=== PATIENT | female | born 1960 | race Caucasian/White ===

== ENCOUNTER 2017-12-30 00:26 | Inpatient (IN) | payer OTHER, MEDICARE ==
[~2017-12-30] VITALS: Ht 162.6 cm; Wt 63.0 kg
[2017-12-30] VITALS (14 sets, daily range): BP systolic 114–146; BP diastolic 66–86
[~2017-12-30 00:26] MED LIST: BACL-1 PO; LIDOCAINE PATCH 5% TD; PREG75CA60 PO
[2017-12-30] MEDS ORDERED: FAMOTIDINE 20 MG TAB PO ONE (08:25)
[2017-12-30] MEDS ORDERED: LIDOCAINE/SOD BICARB 8.4% SYR ID ONE (08:25)
[2017-12-30] MEDS ORDERED: PREGABALIN 150 MG CAPSULE PO ONE (08:25)
[2017-12-30] MEDS ORDERED: NORMOSOL R SOLN(*) 1000 ML BAG 1,000 ML IV PRN (08:25)
[2017-12-30] MEDS ORDERED: ACETAMINOPHEN 500 MG TAB PO ONE (08:25)
[2017-12-30] MEDS ORDERED: CLINDAMYCIN 900 MG/D5W 50 ML 50 ML IVPB ONE (08:25)
[2017-12-30] MEDS ORDERED: MIDAZOLAM 2 MG/2 ML VIAL IVP PRN (08:25)
[2017-12-30] MEDS ORDERED: PROPOFOL(*)1000 MG/100 ML VIAL 100 ML ONE (08:33)
[2017-12-30] MEDS ORDERED: ACETAMINOPHEN(*)1000 MG/100 ML 0 ML IVPB ONE (08:34)
[2017-12-30] MEDS ORDERED: NS(*) 0.9% 250 ML BAG 250 ML ONE ×2 (08:35→22:36)
[2017-12-30] MEDS ORDERED: REMIFENTANIL HCL 1 MG VIAL ONE ×2 (08:35→13:49)
[2017-12-30] MEDS ORDERED: ONDANSETRON 4 MG/2 ML VIAL ONE (09:51)
[2017-12-30] MEDS ORDERED: LIDOCAINE MPF 1% 5 ML VIAL ONE (09:51)
[2017-12-30] MEDS ORDERED: DEXAMETHASONE SOD 4 MG/ML VIAL ONE (09:51)
[2017-12-30] MEDS ORDERED: fentaNYL CITR 100 MCG/2 ML AMP ONE ×2 (09:51→17:47)
[2017-12-30] MEDS ORDERED: PROPOFOL EMUL(*) 10MG/ML 20 ML 20 ML ONE ×2 (09:51→10:34)
[2017-12-30] MEDS ORDERED: METOCLOPRAMIDE 10 MG/2 ML SDV ONE (09:51)
[2017-12-30] MEDS ORDERED: PHENYLEPHRINE 10 MG/1 ML VIAL ONE (09:57)
[2017-12-30] MEDS ORDERED: NS(*) 0.9% 500 ML BAG 500 ML ONE (12:26)
[2017-12-30] MEDS ORDERED: SUCCINYLCHOL CHL 200MG/10ML VL ONE (13:00)
[2017-12-30] MEDS ORDERED: ROCURONIUM BROM 10 MG/ML 5 ML ONE (13:00)
[2017-12-30] MEDS ORDERED: MAGNESIUM HYDROXIDE* 30ML UDCP PO PRN (17:25)
[2017-12-30] MEDS ORDERED: diphenhydrAMINE 25 MG CAP PO PRN (17:25)
[2017-12-30] MEDS ORDERED: LR(*) 1000 ML BAG 1,000 ML IV PRN (17:25)
[2017-12-30] MEDS ORDERED: FLUSH 10 ML SYR IVP PRN (17:25)
[2017-12-30] MEDS ORDERED: HYDROmorphone HCL 2 MG/ML SDV IVP PRN (17:25)
[2017-12-30] MEDS ORDERED: BISACODYL 10 MG SUPP PR PRN (17:25)
[2017-12-30] MEDS ORDERED: ACETAMINOPHEN(*)1000 MG/100 ML 100 ML IVPB PRN (17:25)
[2017-12-30] MEDS ORDERED: ACETAMINOPHEN 500 MG TAB PO PRN (17:25)
[2017-12-30] MEDS ORDERED: BENZOCAINE/MENTHOL 1 EACH LOZG PO PRN (17:25)
[2017-12-30] MEDS ORDERED: oxyCODONE HCL 5 MG CAP PO PRN (17:25)
--- NOTE | 2017-12-30 17:32 | RADIOLOGY IMAGING REPORT ---
FACILITY: [facility] PATIENT NAME: Yolande Lucas : 1960 MR: [id number] V: [id number] EXAM DATE: ORDERING PHYSICIAN: NAGI MACIAS TECHNOLOGIST: [place] [facility] [place]: Yolande Lucas : 1960 Visit/Account:[id number] Date of Sevice: 12/30/2017 Exam type: 2 view cervical spine History: ANTERIOR C4-7 DISCECTOMY AND FUSION Comparison: None. Findings: The initial image demonstrates an operative instrument anterior to the C5-C6 disc space. The subseque nt image demonstrates anterior and interbody fusion of C4-C7. No hardware complication seen. Patient is intubated and there is an NG tube in place. Degenerative changes are noted in the spine. IMPRESSION: 1. Postoperative changes are noted from anterior fusion and discectomy C4-C7. Report Dictated By: Swapnil Barfield MD at 12/30/2017 5:24 PM Report E-Signed By: Swapnil Barfield MD at 12/30/2017 5:26 PM WSN:[id number]
--- NOTE | 2017-12-30 20:46 | Hospitalist Progress Note ---
Subjective Progress Notes Subjective No cp/sob. Right eye has been hurting and feels like something is in it since waking up from surgery. 1400cc of crystalloid, dexamethasone, and phenylephrine given intra-op. Physical Exam Vital Signs Date Time Temp Pulse Resp B/P (MAP) Pulse Ox O2 Delivery O2 Flow Rate FiO2 12/30/17 18:28 97.7 62 12 137/83 (101) 98 Room Air General Appearance: Alert, Awake, No Acute Distress Eyes: Other (Fluoroscein/proparacaine eye drop placed in the Right eye. A horizontal linear line noted below the pupil on the corneal (10mm x 0.5mm). No foreign body seen.) Cardiovascular: Regular Rate and Rhythm Respiratory: Clear to Auscultation Extremities: No Edema Assessment and Plan Problems: (1) Status post cervical spinal fusion Status: Acute Assessment & Plan: She is had a C4-7 anterior diskectomy and fusion. No CV/pulmonary issues. (2) Corneal abrasion Status: Acute Assessment & Plan: She woke up with right eye pain and sensation of something in her eye. Fluorescein testing with the wood's lamp revealed a horizontal abrasion on the cornea below the pupil. No foreign body seen. Will treat with erythromycin eye ointment. (3) Neuropathic pain Status: Chronic Assessment & Plan: Continue Lyrica and Baclofen. (4) GERD (gastroesophageal reflux disease) Status: Chronic Assessment & Plan: Continue Pantoprazole. Problem Qualifiers (1) Corneal abrasion: Laterality: right DELONTE PEDERSEN MD Dec 30, 2017 20:46
[2017-12-30] MEDS: CLINDAMYCIN 900 MG/D5W 50 ML 50 ML IVPB SCH (21:26)
[2017-12-30] MEDS: ERYTHROMYCIN OP OINT 5MG/GM TU OD SCH (21:27)
[2017-12-30] MEDS: DOCUSATE SODIUM 100 MG CAP PO SCH (21:27)
[2017-12-30] MEDS: PREGABALIN 25 MG CAP PO SCH (21:28)
[2017-12-30] MEDS: BACLOFEN 10 MG TAB PO SCH (21:28)
[2017-12-30] MEDS: APAP/HYDROCODONE 325/5 TAB PO PRN (22:29)
[2017-12-30] MEDS ORDERED: ACET500T68 PO (22:54)
[2017-12-31] VITALS (9 sets, daily range): BP systolic 93–121; BP diastolic 56–74; Ht 162.6 cm; Wt 63.0 kg
[2017-12-31] MEDS: DIAZEPAM 5 MG TAB PO PRN ×2 (01:03→20:32)
[2017-12-31] MEDS: APAP/HYDROCODONE 325/5 TAB PO PRN ×3 (03:18→15:09)
[2017-12-31] MEDS: CLINDAMYCIN 900 MG/D5W 50 ML 50 ML IVPB SCH ×2 (05:39→13:11)
[2017-12-31] MEDS: ONDANSETRON 4 MG/2 ML VIAL IVP PRN ×2 (06:31→17:04)
--- NOTE | 2017-12-31 09:06 | Hospitalist Progress Note ---
Subjective Progress Notes Subjective She has complaints of right eye pain, which is unchanged since yesterday. She had no acute events overnight. Patient Complains of: Cardiovascular: No: Chest Pain Respiratory: No: Shortness of Breath Physical Exam Vital Signs Date Time Temp Pulse Resp B/P (MAP) Pulse Ox O2 Delivery O2 Flow Rate FiO2 12/31/17 04:00 97/57 (70) 12/31/17 03:17 98.0 65 14 95 Nasal Cannula 1.0 Intake and Output 12/31/17 01:00 Intake Total 2040 ml Output Total 40 ml Balance 2000 ml Intake Oral 390 ml IV Total 1650 ml Output Drainage Total 40 ml General Appearance: Alert, Awake, No Acute Distress, Afebrile Neuro: No Gross deficits Cardiovascular: Regular Rate and Rhythm Respiratory: No Respiratory Distress, Clear to Auscultation GI: Soft and Non-Tender Psych: Alert & Oriented X3, Appropriate Mood & Affect Assessment and Plan Problems: (1) Status post cervical spinal fusion Status: Acute Assessment & Plan: She is had a C4-7 anterior diskectomy and fusion. No CV/pulmonary issues. (2) Corneal abrasion Status: Acute Assessment & Plan: She woke up with right eye pain and sensation of something in her eye. Fluorescein testing with the wood's lamp revealed a horizontal abrasion on the cornea below the pupil. No foreign body seen. Will treat with erythromycin eye ointment. (3) Neuropathic pain Status: Chronic Assessment & Plan: Continue Lyrica and Baclofen. (4) GERD (gastroesophageal reflux disease) Status: Chronic Assessment & Plan: Continue Pantoprazole. Exam Sepsis Risk: No Definite Risk Problem Qualifiers (1) Corneal abrasion: Laterality: right TOUSSAINTTONYA STRATEGIC SOURCING MANAGER Dec 31, 2017 09:06
--- NOTE | 2017-12-31 09:08 | RADIOLOGY IMAGING REPORT ---
FACILITY: [facility] - [place] PATIENT NAME: Yolande Lucas : 1960 MR: [id number] V: [id number] EXAM DATE: ORDERING PHYSICIAN: NAGI MACIAS TECHNOLOGIST: Location: [facility] - [place] Patient: Yolande Lucas : 1960 Visit/Account:[id number] Date of Sevice: 12/31/2017 CERVICAL SPINE 2 OR 3 VIEW HISTORY: c spine surgery COMPARISON: X-ray examination cervical spine December 30, 2017 FINDINGS: Osseous alignment is anatomic status post anterior fusion C4-C7. Hardware is intact. Surgical drain is noted. Expected soft tissue findings. IMPRESSION: Anatomic alignment status post anterior cervical fusion Report Dictated By: Sanjiv Plummer MD at 12/31/2017 9:02 AM Report E-Signed By: Sanjiv Plummer MD at 12/31/2017 9:05 AM WSN:[id number]
[2017-12-31] MEDS: PANTOPRAZOLE SOD 40 MG TABEC PO SCH (09:50)
[2017-12-31] MEDS: DOCUSATE SODIUM 100 MG CAP PO SCH ×2 (09:50→21:38)
[2017-12-31] MEDS: BACLOFEN 10 MG TAB PO SCH ×3 (09:50→21:38)
[2017-12-31] MEDS: PREGABALIN 25 MG CAP PO SCH ×2 (09:50→21:38)
[2017-12-31] MEDS: ERYTHROMYCIN OP OINT 5MG/GM TU OD SCH ×4 (09:51→21:38)
[2018-01-01 01:49] VITALS: BP 103/59
[2018-01-01 05:10] VITALS: BP 119/69
[2018-01-01] MEDS: DIAZEPAM 5 MG TAB PO PRN (05:11)
[2018-01-01 08:04] VITALS: BP 120/66
[2018-01-01] MEDS: PREGABALIN 25 MG CAP PO SCH (09:42)
[2018-01-01] MEDS: PANTOPRAZOLE SOD 40 MG TABEC PO SCH (09:42)
[2018-01-01] MEDS: ERYTHROMYCIN OP OINT 5MG/GM TU OD SCH ×2 (09:42→13:45)
[2018-01-01] MEDS: DOCUSATE SODIUM 100 MG CAP PO SCH (09:42)
[2018-01-01] MEDS: BACLOFEN 10 MG TAB PO SCH ×2 (09:42→13:44)
--- NOTE | 2018-01-01 10:11 | RADIOLOGY IMAGING REPORT ---
FACILITY: [facility] [place] PATIENT NAME: Yolande Lucas : 1960 MR: [id number] V: [id number] EXAM DATE: ORDERING PHYSICIAN: TONYA TOUSSAINT TECHNOLOGIST: Location: [facility] [place] Patient: Yolande Lucas : 1960 Visit/Account:[id number] Date of Sevice: 01/01/2018 Abdominal series with single view of the chest: 01/01/2018 9:07 AM HISTORY: vomiting, left lower quad pain COMPARISON:none. FINDINGS: Gas within nondistended bowel loops including gas in the rectum. There are a few scattere d small bowel air-fluid levels. Fecal material is present in the colon. No pneumatosis or free air. Right upper quadrant cholecystectomy clips. Previous lower lumbar laminectomy and lumbosacral fusi on. Cardiomediastinal contours are normal. No pulmonary nodule, infiltrate, or consolidation. Pleural sp aces are clear. Bony thorax is intact. Previous lower cervical ACF. IMPRESSION: 1. Nonspecific bowel gas pattern. 2. No acute cardiopulmonary process. Report Dictated By: Cristino Ray MD at 01/01/2018 10:05 AM Report E-Signed By: Cristino Ray MD at 01/01/2018 10:07 AM WSN:[id number]
[2018-01-01] MEDS ORDERED: POLYETHYLENE GLYCOL 17 GM PKT PO ONE (10:25)
[2018-01-01] MEDS ORDERED: DOCU240C84 PO (10:38)
[2018-01-01] MEDS ORDERED: ONDA4TAB97 PO (10:39)
[2018-01-01] MEDS ORDERED: OXYC-865 PO (10:39)
--- NOTE | 2018-01-01 12:32 | Hospitalist Progress Note ---
Subjective Progress Notes Subjective She has complaints of nausea and had vomiting last night. She has some abdominal pain to the left lower quadrant. Patient Complains of: Cardiovascular: No: Chest Pain Respiratory: No: Shortness of Breath Gastrointestinal: Nausea, Vomiting; No Bowel Movement Physical Exam Vital Signs Date Time Temp Pulse Resp B/P (MAP) Pulse Ox O2 Delivery O2 Flow Rate FiO2 01/01/18 10:32 96 Nasal Cannula 1.0 01/01/18 08:04 99.8 76 12 120/66 (84) Intake and Output 01/01/18 01:00 Intake Total 2450 ml Output Total 35 ml Balance 2415 ml Intake Oral 2400 ml IV Total 50 ml Output Drainage Total 35 ml # Voids 5 General Appearance: Alert, Awake, No Acute Distress, Afebrile Neuro: No Gross deficits Cardiovascular: Regular Rate and Rhythm Respiratory: No Respiratory Distress, Clear to Auscultation GI: Soft and Non-Tender Psych: Alert & Oriented X3, Appropriate Mood & Affect Assessment and Plan Problems: (1) Status post cervical spinal fusion Status: Acute Assessment & Plan: She is had a C4-7 anterior diskectomy and fusion. No CV/pulmonary issues. (2) Corneal abrasion Status: Acute Assessment & Plan: She woke up with right eye pain and sensation of something in her eye. Fluorescein testing with the wood's lamp revealed a horizontal abrasion on the cornea below the pupil. No foreign body seen. Will treat with erythromycin eye ointment, she will continue for three days. (3) Neuropathic pain Status: Chronic Assessment & Plan: Continue Lyrica and Baclofen. (4) GERD (gastroesophageal reflux disease) Status: Chronic Assessment & Plan: Continue Pantoprazole. Exam Sepsis Risk: No Definite Risk Problem Qualifiers (1) Corneal abrasion: Laterality: right TONYA TOUSSAINT MORTGAGE PROTECTION SPECIALIST Jan 01, 2018 12:32
--- NOTE | 2018-01-06 11:53 | OPERATIVE REPORT 1 ---
EVENT DATE: December 30, 2017 SURGEON: Clinton Rivas MD ANESTHESIOLOGIST: Cleveland Esquivel MD ANESTHESIA: General. 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 PROCEDURE PERFORMED C4-5, C5-6 and C-7 anterior cervical diskectomy and fusion with anterior cervical plating. IV FLUIDS 1700 cc. ESTIMATED BLOOD LOSS 40 cc. IMPLANTS USED 1. 7 mm, 6-degree lordotic, size small interbody devices from [employer] c3. 2. 55 mm anterior cervical plate from [employer] with eight 14 mm fixation screws also from [employer] SPECIMENS None. DRAINS 10- [place] round Cedric-Fonseca drain through the neck. COMPLICATIONS None. DISPOSITION Post-Anesthesia Care Unit. INDICATIONS FOR SURGERY Ms. Lucas is a 57-year-old female with a long history of neck pain with radiating pain, numbness and tingling down bilateral upper extremities. She had difficulties with fine motor skills in her upper extremities as well as severe burning dysesthesias. Her MRI showed severe degenerative disk disease with cord flattening at C4-5, C5-6 and C6-7. Her physical examination was significant for a positive crossed radial reflex bilaterally and a positive Malave on the right, negative on the left. She had positive Spurling's maneuvers as well and unsteadiness with tandem gait testing. Secondary to ongoing symptoms and the severity of the spinal cord compression, we offered and Ms. Lucas elected to undergo C4 through C7 anterior cervical diskectomy and fusion. Prior to surgery, I explained in detail to the patient the possible risks of surgery. These risks include bleeding, infection, damage to surrounding structures, swallowing difficulties, hoarseness, possible need for tube feeding, damage to the superior or recurrent laryngeal nerve, spinal cord injury, nerve root injury, persistent and/or worsening pain, failure of fixation, need for further surgery, , blindness, sexual dysfunction, autonomic nervous system dysfunction as well as other unforeseen medical and surgical complications. An understanding that in general spinal surgery is more predictive at improving extremity discomfort than axial spine pain was stressed. Additional discussion regarding this type of surgery being directed at preventing the progression of myelopathic symptoms rather than reversing them was also stressed. DESCRIPTION OF PROCEDURE On the day of surgery, the patient was met in the preoperative hold area and all questions were answered. The operative site was identified and marked by myself. The patient was brought in good condition to the operating room and after succumbing to anesthesia was positioned in the supine position on a standard OR bed. Care was taken to maintain appropriate perfusion pressures during anesthesia. All bony protuberances and soft tissues were well padded in the standard fashion. Preoperative antibiotics were administered according to the appropriate timing schedule. At the conclusion of the procedure, the sponge and needle counts were correct x2. A final time-out was undertaken to confirm correct patient, correct levels and correct surgery. The patient was then prepped and draped in the standard sterile orthopedic fashion. An oblique incision was along the medial border of the sternocleidomastoid muscle and sharp dissection was carried out to the platysma, which was divided. Blunt finger dissection was carried out medial to the carotid sheath and the sternocleidomastoid. Soft tissues were elevated off the anterior cervical spine including the longus colli muscles and a lateral radiograph was obtained to confirm correct levels. A self-retaining retractor was then placed and we began our diskectomies at the C4-C5 level. The anterior annulus of C4-C5 was incised along the end plates and laterally with #15 blade. A combination of progressively smaller curettes and rongeurs was then used to perform a complete diskectomy from ventral to dorsal. Once we got about two-thirds of the way through the disk space, a [place]ard game preserve manager was placed and distracted. There was no change in neurophysiologic monitoring. A significant amount of loose herniated disk was found in the interval between the posterior annulus and the posterior longitudinal ligament. Care was taken to avoid putting any undue pressure on the spinal cord as we removed these disk fragments and then utilized a small forward angled curette to dissect through the posterior longitudinal ligament. The posterior longitudinal ligament was taken down with #1 and #2 Kerrison rongeur and a nerve hook was passed behind the vertebral bodies to ensure adequate decompression of the spinal cord. The same nerve hook was passed out the foramina bilaterally and #2 Kerrison was used to open up the foramina and ensure complete decompression of the exiting nerve roots. A high-speed bur was then used to feather the end plates of the vertebral bodies above and below to allow for ingress of blood and we then used 7 mm rasp that was the same size as the intended surgical implant to further refine the endplates. We ensured that all cartilaginous fragments were removed from the endplates and then irrigated the wound. A 7 mm, 6-degree lordotic, size small interbody device from [employer] was selected and placed into the interspace and then recessed approximately 0.5 mm. Attention was then turned to the C5-C6 level, where again we performed diskectomy from ventral to dorsal in the same fashion as at C4-C5. When distraction was placed across the disk space, there was no change in neurophysiologic monitoring and we ultimately were able to achieve excellent decompression of the spinal cord and the foramina at that level. Again, we selected a 7 mm interbody device and this was placed in the same fashion as at C4-C5. At C6-C7, we again performed a diskectomy in the same fashion as at the other two levels. Again, a 7 mm interbody device was selected and placed. No changes in neurophysiologic monitoring occurred. Attention was then turned to placement of an anterior cervical plate. A 55 mm, three level plate from [employer] was chosen and the anterior spine was sculpted to accept that plate appropriately. A temporary fixation pin was placed in the C4 vertebral body on the right side and we were then able to position the appropriate orientation. 14 mm screws were placed in all eight holes, fixing the plate to the C4, C5, C6 and C7 vertebral bodies. The locking mechanisms were then turned and locked down and a lateral radiograph was obtained that confirmed appropriate placement of the plate. The wound was then irrigated with copious sterile saline solution and closed in layers using interrupted sutures for the platysma, inverted interrupted sutures for the subcutaneous tissue and then a running subcuticular skin stitch. A drain was left deep to the platysma and sponge and needle counts were correct x2. POSTOPERATIVE CARE PLAN: Ms. Lucas will remain in the hospital until her drain output decreased and she meets discharge criteria. She will follow up in my clinic two weeks postoperatively for a wound check and examination. CHUCK
== END 2018-01-01 14:50 | disposition home or self-care (01) | DRG 473 ==
LOC: OR 00:26 → MED 18:20
PROVIDERS: ADMIT Orthopaedic Surgery; ATTEND Orthopaedic Surgery
PROC: 0RT30ZZ Resection of Cervical Vertebral Disc, Open Approach (ICD-10-PCS; 2017-12-30)
PROC: 0RG20A0 Fusion of 2 or more Cervical Vertebral Joints with Interbody Fusion Device, Anterior Approach, Anterior Column, Open Approach (ICD-10-PCS; principal; 2017-12-30 11:50)
DX: M50.021 Cervical disc disorder at C4-C5 level with myelopathy (principal); S05.01XA Injury of conjunctiva and corneal abrasion without foreign body, right eye, initial encounter; G89.29 Other chronic pain; K21.9 Gastro-esophageal reflux disease without esophagitis; R20.8 Other disturbances of skin sensation; Y92.230 Patient room in hospital as the place of occurrence of the external cause; Z90.49 Acquired absence of other specified parts of digestive tract; Z90.710 Acquired absence of both cervix and uterus
CPT/HCPCS: 36415; 72020; 72040; 74022; 86850; 86900; 86901; 97161; 97165; C1713; J0131; J0330; J1100; J2001; J2250; J2370; J2405; J2704; J2765; J3010; J3490; J7040; J7050; L0120